=== PATIENT | male | born 1945 | race African-American/Black ===

== ENCOUNTER 2020-12-23 17:05 | Emergency (ER) | payer OTHER | END 2020-12-23 18:14 | LOC: EEVIPCON 17:05 → CSHERS 17:05 | DX: S09.90XA Unspecified injury of head, initial encounter (principal); E11.40 Type 2 diabetes mellitus with diabetic neuropathy, unspecified; E11.22 Type 2 diabetes mellitus with diabetic chronic kidney disease; I12.9 Hypertensive chronic kidney disease with stage 1 through stage 4 chronic kidney disease, or unspecified chronic kidney disease; N18.9 Chronic kidney disease, unspecified; I25.10 Atherosclerotic heart disease of native coronary artery without angina pectoris; Z86.73 Personal history of transient ischemic attack (TIA), and cerebral infarction without residual deficits; Z79.4 Long term (current) use of insulin; Z79.899 Other long term (current) drug therapy; W05.0XXA Fall from non-moving wheelchair, initial encounter | CPT/HCPCS: 36416; 70450; 93005; G0390 ==